=== PATIENT | female | born 2000 | race Caucasian/White ===

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

== ENCOUNTER 2019-11-18 16:53 | Emergency (ER) | payer SELFPAY ==
[2019-11-18] MEDS ORDERED: HYDROCODONE/ACETAMINOPHEN 5-325 MG TABLET PO ONE (17:30)
--- NOTE | 2019-11-18 17:32 | ER Document Report ---
ED Medical Screen (RME) - General Chief Complaint: Flank Pain Stated Complaint: FLANK PAIN/BLOOD IN URINE Time Seen by Provider: 11/18/19 17:20 Primary Care Provider: KAROL STEEN PA-C [Primary Care Provider] - Follow up as needed Information source: Patient Notes: Patient presents complaining of right flank pain for the past week. Patient states that she thought she may be developing a UTI and was taking Azo. Patient states that she finished the Azo a few days ago but still has right flank tenderness. Patient was on vacation and was not treated for what she thought to be a UTI. Patient denies any fever nausea or vomiting. I have greeted and performed a rapid initial assessment of this patient. A comprehensive ED assessment and evaluation of the patient, analysis of test results and completion of the medical decision making process will be conducted by additional ED providers. TRAVEL OUTSIDE OF THE [place] IN LAST 30 DAYS: No - Related Data Allergies/Adverse Reactions: No Known Allergies Allergy (Verified 12/23/17 16:38) Past Medical History Neurological Medical History: Reports: Hx Migraine Renal/ Medical History: Denies: Hx Peritoneal Dialysis Musculoskeltal Medical History: Reports Hx Musculoskeletal Trauma Traumatic Medical History: Reports: Hx Traumatic Brain Injury Past Surgical History: Reports: Hx Section, Hx Cholecystectomy - Immunizations Immunizations up to date: Yes Hx Diphtheria, Pertussis, Tetanus Vaccination: Yes Physical Exam - Vital signs Vitals: Temp Pulse Resp BP Pulse Ox 98.2 F 78 16 127/88 H 100 11/18/19 17:12 11/18/19 17:12 11/18/19 17:12 11/18/19 17:12 11/18/19 17:12 - Back Back: CVA tenderness - right Course - Vital Signs Vital signs: Temp Pulse Resp BP Pulse Ox 98.2 F 78 16 127/88 H 100 11/18/19 17:12 11/18/19 17:12 11/18/19 17:12 11/18/19 17:12 11/18/19 17:12 Doctor's Discharge - Discharge Referrals: KAROL STEEN PA-C [Primary Care Provider] - Follow up as needed
[2019-11-18 18:09] LABS: APPEARANCE,URINE CLEAR; BILIRUBIN,URINE NEGATIVE (NEGATIVE); COLOR,URINE YELLOW; GLUCOSE, URINE NEGATIVE (NEGATIVE); KETONES,URINE NEGATIVE (NEGATIVE); LEUKOCYTE ESTERASE,URINE NEGATIVE (NEGATIVE); NITRITE,URINE NEGATIVE (NEGATIVE); PROTEIN,URINE NEGATIVE (NEGATIVE); URINE SPECIFIC GRAVITY 1.023; UROBILINOGEN,URINE NEGATIVE mg/dL (<2.0)
[2019-11-18] MEDS ORDERED: KETOROLAC TROMETHAMINE INJ/PF 30 MG/1 ML SDV IM ONE (19:20)
--- NOTE | 2019-11-18 19:25 | ER Document Report ---
ED GI/ - General TRAVEL OUTSIDE OF THE [place] IN LAST 30 DAYS: No <AMINA MENG - Last Filed: 11/18/19 19:26> <JEFFTABBY ESPOSITO - Last Filed: 11/18/19 21:03> - General Chief Complaint: Flank Pain Stated Complaint: FLANK PAIN/BLOOD IN URINE Time Seen by Provider: 11/18/19 17:20 Primary Care Provider: KAROL STEEN PA-C [Primary Care Provider] - Follow up as needed Notes: Patient is a 19-year-old female who presents emergency department with a chief complaint of right flank pain. Patient reports she has had right flank pain since November 11 and is currently on day 8. Patient reports he did just returned from [place] from a one-week vacation. Patient reports the flank pain was present prior to the vacation. Patient reports that she was taking Azo for a possible urinary tract infection which did not help. Patient reports she is not currently having any urinary symptoms. Patient denies fever. Patient denies nausea, vomiting or diarrhea. Patient denies abdominal pain. Patient denies recent injury or fall. 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 Patient reports the d iscomfort is just gradually continued to get worse over the past few days. Patient has been unable to rest as they were on vacation. Patient reports earlier today she went to use the restroom when she wiped and noticed a very small amount of light blood on the tissue paper. Patient reports she thought she had a urinary tract infection and could be related to this. Patient reports her last menstrual cycle is unknown as she does has very irregular periods. Patient denies vaginal discharge or discharge that is different from her normal. Denies pelvic pain. Patient reports the right flank pain is sharp in nature and shoots down to the right lower back. Patient reports the pain is worse with movement and bending over. (AMINA MENG) - Related Data Allergies/Adverse Reactions: No Known Allergies Allergy (Verified 12/23/17 16:38) Past Medical History - General Information source: Patient - Social History Smoking Status: Never Smoker Frequency of alcohol use: Social Drug Abuse: None Lives with: Family, Spouse/Significant other Family History: Reviewed & Not Pertinent - Past Medical History Cardiac Medical History: Reports: None Pulmonary Medical History: Reports: None EENT Medical History: Reports: None Neurological Medical History: Reports: Hx Migraine Endocrine Medical History: Reports: None Renal/ Medical History: Reports: None. Denies: Hx Peritoneal Dialysis Malignancy Medical History: Reports: None GI Medical History: Reports: None Musculoskeletal Medical History: Reports Hx Musculoskeletal Trauma Skin Medical History: Reports None Psychiatric Medical History: Reports: None Traumatic Medical History: Reports: Hx Traumatic Brain Injury Infectious Medical History: Reports: None Past Surgical History: Reports: Hx Section, Hx Cholecystectomy - Immunizations Immunizations up to date: Yes Hx Diphtheria, Pertussis, Tetanus Vaccination: Yes <AMINA MENG - Last Filed: 11/18/19 19:26> Review of Systems - Review of Systems Constitutional: No symptoms reported EENT: No symptoms reported Cardiovascular: No symptoms reported Respiratory: No symptoms reported Gastrointestinal: No symptoms reported Genitourinary: See HPI Female Genitourinary: No symptoms reported Musculoskeletal: See HPI Skin: No symptoms reported Hematologic/Lymphatic: No symptoms reported Neurological/Psychological: No symptoms reported <AMINA MENG - Last Filed: 11/18/19 19:26> Physical Exam - Vital signs Interpretation: Normal <AMINA MENG - Last Filed: 11/18/19 19:26> - Vital signs Vitals: Temp Pulse Resp BP Pulse Ox 98.2 F 78 16 127/88 H 100 11/18/19 17:12 11/18/19 17:12 11/18/19 17:12 11/18/19 17:12 11/18/19 17:12 - Notes Notes: GENERAL: Well-appearing, well-nourished and in no acute distress. HEAD: Atraumatic, normocephalic. EYES: Pupils equal round and reactive to light, extraocular movements intact, sclera anicteric, conjunctiva are normal. ENT: Nares patent, oropharynx clear without exudates. Moist mucous membranes. NECK: Normal range of motion, supple without lymphadenopathy or JVD. LUNGS: Breath sounds clear to auscultation bilaterally and equal. No wheezes rales or rhonchi. HEART: Regular rate and rhythm without murmurs, rubs or gallops. ABDOMEN: Soft, nontender, normoactive bowel sounds. No guarding, no rebound. No masses appreciated. BACK: No cervical, thoracic, lumbar midline tenderness. No saddle anesthesia, normal distal neurovascular exam. Patient has point tenderness to the right flank area as well as the right lower back. GENITOURINARY: Deferred. EXTREMITIES: Normal range of motion, no pitting or edema. No clubbing or cyanosis. NEUROLOGICAL: Cranial nerves II through XII grossly intact. Normal speech, normal gait. PSYCH: Normal mood, normal affect. SKIN: Warm, Dry, normal turgor, no rashes or lesions noted. (AMINA MENG) Course - Laboratory Result Diagrams: 11/18/19 19:26 11/18/19 19:26 <TABBY AGUILAR - Last Filed: 11/18/19 21:03> - Re-evaluation Re-evalutation: 11/18/19 20:58 I did perform a reevaluation of the patient. Patient was noted to have right lower back pain that is been present for the past 8 days. 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 Patient does not recall specific injury, but started having pain prior to her vacation. She has been able to eat and drink without difficulty. She is urinating normally and having normal bowel movements. The pain does not radiate. She has not had any loss of control of bowel or bladder. She has not noticed any saddle anesthesia or muscle paralysis/weakness. Patient states that bending and twisting does make her pain worse. No history of spinal abscess, diabetes, or IV drug abuse. PHYSICAL EXAMINATION: ABDOMEN: Soft, nontender, nondistended abdomen. No guarding, no rebound. Normal bowel sounds present. No CVA tenderness bilaterally. No pulsatile mass Musculoskeletal: LE's b/l: FROM to passive/active. Strength 5+/5. No deficits noted. No bony tenderness of extremities. Back: FROM to passive/active. Strength 5+/5. No vertebral point tenderness, stepoffs, or deformities. No other bony tenderness, erythema, swelling, or ecchymosis. SLR negative b/l. + Reproducible tenderness to the L-paraspinal mm right side. Mild spasming. No SI jt tenderness. No foot drop Extremities: No cyanosis, clubbing, or edema b/l. Peripheral pulses 2+. Capillary refill less than 2 seconds. NEUROLOGICAL: Normal speech, normal gait. Normal sensory, motor exams. Reflexe s 2+ b/l. A/P: Patient is an afebrile, well-hydrated, 19-year-old female who presents to the ED with acute low back pain, suspect musculoskeletal. Vitals are acceptable. PE is otherwise unremarkable for any focal neurological deficits. Patient declined Toradol. She has no significant tachycardia, tachypnea, or hypoxia. She is nontoxic-appearing and is tolerating p.o. without difficulties. There are no signs of infection. No other red flag symptoms noted. No other labs or imaging warranted at this time based on H&P. Low suspicion for any meningitis, fracture, expanding/ruptured AAA, cauda equina syndrome, epidural mass lesion/abscess, herniated disc causing severe spinal stenosis, or other systemic infection at this time. Patient is aware that this condition can change from initial presentation and that she needs monitor symptoms closely for any acute changes. I will send her home with a prescription for Robaxin and motrin. Conservative measures otherwise for symptoms. Recheck with your PCM in 3-5 days. Consider consult with orthopedic/physical therapy. Return to the ED with any worsening/concerning symptoms otherwise as reviewed discharge. Patient is in agreement. (TABBY AGUILAR) - Vital Signs Vital signs: Temp Pulse Resp BP Pulse Ox 98.2 F 78 16 127/88 H 100 11/18/19 17:12 11/18/19 17:12 11/18/19 17:12 11/18/19 17:12 11/18/19 17:12 - Laboratory Laboratory results interpreted by me: 11/18/19 19:26 Creatinine 0.43 L Discharge <AMINA MENG - Last Filed: 11/18/19 19:26> <TABBY AGUILAR - Last Filed: 11/18/19 21:03> - Discharge Clinical Impression: Right low back pain Qualifiers: Chronicity: acute Sciatica presence: without sciatica Qualified Code(s): M54.5 - Low back pain Condition: Stable Disposition: HOME, SELF-CARE Additional Instructions: Rest, Ice Tylenol/ibuprofen as needed Light stretches daily Strength exercises as able Moist heat and massage may help F/u with your PCP in 3-5 days for a recheck Consider consult(s) with Orthopedics/physical therapy for ongoing/worsening symptoms Return to the ED with any worsening symptoms and/or development of fever, headache, chest pain, palpitations, syncope, shortness of breath, trouble breathing, abdominal pain, n/v/d, blood in stool/urine, loss of control of bowel/bladder, urinary retention, muscle weakness/paralysis, saddle anesthesia, numbness/tingling, or other worsening symptoms that are concerning to you. Prescriptions: Ibuprofen [Motrin 800 mg Tablet] 800 mg PO Q8H PRN #15 tab PRN Reason: Methocarbamol [Robaxin 750 mg Tablet] 750 mg PO TID PRN #12 tablet PRN Reason: Forms: Elevated Blood Pressure Referrals: KAROL STEEN PA-C [Primary Care Provider] - Follow up as needed [facility] [Provider Group] - Follow up as needed
[2019-11-18 19:36] LABS: ABSOLUTE BASOPHILS # (AUTO) 0.1 10^3/uL (0.0-0.2); ABSOLUTE EOSINOPHILS # (AUTO) 0.1 10^3/uL (0.0-0.6); ABSOLUTE LYMPHOCYTES (AUTO) 3.1 10^3/uL (0.5-4.7); ABSOLUTE MONOCYTES (AUTO) 0.6 10^3/uL (0.1-1.4); ABSOLUTE NEUT (AUTO) 4.8 10^3/uL (1.7-8.2); BASOPHILS % (AUTO) 1.1 % (0-2); EOSINOPHILS % (AUTO) 1.4 % (0-6); HEMATOCRIT 41.8 % (36.0-47.0); HEMOGLOBIN 14.4 g/dL (12.0-15.5); LYMPHOCYTES % (AUTO) 35.4 % (13-45); MEAN CORPUSCULAR HEMOGLOBIN 30.2 pg (27.0-33.4); MEAN CORPUSCULAR HGB CONC 34.5 g/dL (32.0-36.0); MEAN CORPUSCULAR VOLUME 88 fl (80-97); MONOCYTES % (AUTO) 6.7 % (3-13); PLATELET COUNT 297 10^3/uL (150-450); RED BLOOD COUNT 4.77 10^6/uL (3.72-5.28); RED CELL DISTRIBUTION WIDTH 13.5 % (11.5-14.0); SEGMENTED NEUTROPHILS % (AUTO) 55.4 % (42-78); TOTAL CELLS COUNTED % (AUTO) 100 %; WHITE BLOOD COUNT 8.7 10^3/uL (4.0-10.5)
[2019-11-18 20:05] LABS: ALBUMIN 4.8 g/dL (3.5-5.0); ALKALINE PHOSPHATASE 72 U/L (38-126); ANION GAP 12 (5-19); ASPARTATE AMINO TRANSFERASE 21 U/L (14-36); BILIRUBIN,DIRECT 0.2 mg/dL (0.0-0.4); BILIRUBIN,TOTAL 0.7 mg/dL (0.2-1.3); BLOOD UREA NITROGEN 14 mg/dL (7-20); CALCIUM 9.4 mg/dL (8.4-10.2); CARBON DIOXIDE 26 mmol/L (22-30); CHLORIDE 103 mmol/L (98-107); GLUCOSE 85 mg/dL (75-110); POTASSIUM 4.2 mmol/L (3.6-5.0); TOTAL PROTEIN 7.9 g/dL (6.3-8.2)
--- NOTE | 2019-11-18 20:41 | RADIOLOGY REPORT (SQ) ---
EXAM DESCRIPTION: [facility]: US RETROPERITONEUM CLINICAL HISTORY: 19 years Female; right flank pain; TECHNIQUE: Bilateral renal ultrasound was performed. COMPARISON: None. FINDINGS: Visualized portions of IVC and aorta are unremarkable. Right kidney: 11.4 x 3.9 x 5.2 cm. No hydronephrosis or shadowing calculi. Left kidney: 11 x 4.5 x 4.8 cm. No hydronephrosis or shadowing calculi. Bladder: Prevoid 71 mL. Bilateral jets were demonstrated. IMPRESSION: 1. Normal renal sonogram.
[2019-11-18 21:19] VITALS: BP 125/83
== END 2019-11-18 21:17 | disposition home or self-care (01) ==
LOC: ER 16:53
DX: M54.5 Low back pain (principal); R10.9 Unspecified abdominal pain; R31.9 Hematuria, unspecified
CPT/HCPCS: 36415; 76770; 80053; 81001; 84703; 85025; 99284